=== PATIENT | female | born 2000 | race Two or more races ===

== ENCOUNTER 2024-02-07 16:28 | Emergency (ER) | payer BC, MEDICAID ==
[~2024-02-07] VITALS: Ht 154.9 cm; Wt 61.0 kg
[2024-02-07 18:48] VITALS: BP 126/65; PULSE 60; RESP 16; TEMP 98.3; O2SAT 97
--- NOTE | 2024-02-07 19:37 | DVH ---
EXAM: XY CHEST TWO VIEWS ROUTINE CLINICAL HISTORY: sob TECHNIQUE: Frontal and lateral views of the chest WID: COMPARISON: None FINDINGS: Lines and tubes: None Chest: The heart size and pulmonary vasculature is within normal limits. No pleural effusion, pneumothorax, or consolidation. The osseous structures are grossly intact. IMPRESSION: No acute cardiopulmonary abnormality.
[2024-02-07] MEDS ORDERED: PROM1SOL4 PO (20:01)
[2024-02-07] MEDS ORDERED: METH4PAK PO (20:01)
[2024-02-07] MEDS ORDERED: AZIT-43 PO (20:01)
--- NOTE | 2024-02-07 20:01 | ED.PDOC ---
SOB-HPI HPI Comments This is a 23-year-old female patient presents to the ED chief complaint cough x3 weeks. Reports cough x3 weeks productive with tinge red and mucus. States tried [id number] medications with little relief. Denies difficulty breathing, shortness of breath, chest pain, fever or chills. Chief Complaint: Cough Time Seen by MD: 18:05 Reviewed notes: Nurses Notes, Medications, Allergies Information Source: Patient Mode of Arrival: Ambulatory Past Medical History PAST MEDICAL HISTORY: Denies Surgical History: Denies all surgeries RETAIL SEASONAL SPECIALIST History: No Pertinent RETAIL SEASONAL SPECIALIST History Family History Family History: Reviewed,noncontributory to illness Constitutional: reports: fever; denies: chills, diaphoresis, fatigue, malaise, sweats, weakness, others EENTM: denies: blurred vision, double vision, ear bleeding, ear discharge, ear drainage, ear pain, ear ringing, eye pain, eye redness, hearing loss, mouth pain, mouth swelling, nasal discharge, nose bleeding, nose congestion, nose pain, photophobia, tearing, throat pain, throat swelling, voice changes, others Respiratory: reports: cough; denies: hemoptysis, orthopnea, SOB at rest, shortness of breath, SOB with excertion, stridor, wheezing, others Cardiovascular: denies: chest pain, dizzy spells, diaphoresis, Dyspnea on exertion, edema, irregular heart beat, left arm pain, lightheadedness, palpitations, PND, syncope, others Gastrointestinal: denies: abdomen distended, abdominal pain, blood streaked bowels, constipated, diarrhea, dysphagia, difficulty swallowing, hematemesis, melena, nausea, poor appetite, poor fluid intake, rectal bleeding, rectal pain, vomiting, others Genitourinary: denies: abnormal vagina bleeding, burning, dyspareunia, dysuria, flank pain, frequency, hematuria, incontinence, pain, , vagina discharge, urgency, others Neurological: denies: dizziness, fainting, headache, left sided numbness, left sided weakness, numbness, paresthesia, pre-existing deficit, right sided nu mbness, right sided weakness, seizure, speech problems, tingling, tremors, weakness, others Musculoskeletal: denies: back pain, gout, joint pain, joint swelling, muscle pain, muscle stiffness, neck pain, others Integumetry: denies: bruises, change in color, change in hair/nails, dryness, laceration, lesions, lumps, rash, wounds, others Allergic/Immunocompromised: denies: Difficulty Healing, Frequent Infections, Hives, Itching, others Endocrine: denies: excessive hunger, excessive sweating, excessive thirst, excessive urination, flushing, intolerance to cold, intolerance to heat, unexplained weight gain, unexplained weight loss, others Psychiatric: denies: anxiety, bipolar disorder, depression, hopeless, panic disorder, schizophrenia, sleepless, suicidal, others Physical Exam General Appearance: No Apparent Distress, Normal HEENT: Normal ENT Inspection, Pharynx Normal, TMs Normal Neck: Full Range of Motion, Non-Tender Respiratory: Chest Non-Tender, Inspiration, No Accessory Muscle Use, No Respiratory Distress, Rhonchi Cardiovascular: No Edema, No JVD, No Murmur, No Gallop, Normal Peripheral Pulses, Regular Rate/Rhythm Breast Exam: Deferred Gastrointestinal: No Organomegaly, Non Tender, No Pulsatile Mass, Normal Bowel Sounds, Soft Genitalia: Deferred Pelvic: Deferred Rectal: Deferred Extremities: Normal capillary refill, Normal inspection, Normal range of motion, Non-tender, No pedal edema Musculoskeletal : Apperance: Normal Neurologic: Alert, director of procurement II-XII nml as Tested, No Motor Deficits, Normal Affect, Normal Mood, No Sensory Deficits Cerebellar Function: Normal Reflexes: Normal Skin: Dry, Normal Color, Warm Lymphatic: No Adenopathy Was a procedure done? Was a procedure done?: No Differential Dx Differential Diagnosis: Pneumonia X-Ray, Labs, Meds, VS Vital Signs Date Time Temp Pulse Resp B/P (MAP) Pulse Ox O2 Delivery O2 Flow Rate FiO2 02/07/24 18:48 60 16 97 Room Air 02/07/24 18:48 98.3 60 16 126/65 (85) 97 98.3 02/07/24 16:59 98.3 60 16 126/65 (85) 97 X-Ray, Labs, Meds, VS Comment Chest x-ray shows negative cardio pulmonary findings before director corporate sales read. After review of imaging appears to be perihilar consolidation fluid likely secondary to viral infection viral pneumonia. With symptoms greater than 5 days continues with cough we will trial azithromycin Medrol Dosepak and promethazine for her cough eyes made to rest increase p.o. fluids with electrolytes follow up with her PCP in 2-3 days ER return precautions given patient indicated understanding agrees with discharge plan of care. Time of 1ST Reevaluation: 19:58 Reevaluation 1ST: Improved Patient Education/Counseling: Diagnosis, Treatment, Prognosis, Need For Follow Up Family Education/Counseling: No Family Present Departure 1 Departure Time of Disposition: 19:57 Impression: Primary Impression: Viral pneumonia Disposition: 01 HOME / SELF CARE / HOMELESS Condition: Stable e-Prescriptions Methylprednisolone (Medrol Dosepak) 4 Mg Allen 4 MG PO UD for 6 Days, #21 TAB UAD Prov: SHMUEL BURNS [facility] 02/07/24 Azithromycin (Azithromycin) 250 Mg Tab 250 MG PO DAILY MDD 500 for 5 Days, #6 TAB 0 Refills 2 TABLETS ORALLY ON DAY ONE, THEN 1 TABLET ORALLY DAILY FOR 4 DAYS Prov: SHMUEL BURNS [facility] 02/07/24 Promethazine-Dm (Promethazine Dm 6.25-15 mg/5Ml) 1 Leonora Leonora 5 ML PO QIDP PRN for 4 Days, #80 ML Prov: SHMUEL BURNS [facility] 02/07/24 Discharged With: Self Critical Care Note Critical Care Time?: No Stability Stability form required: No Heart Score Heart Score: Heart Score Response (Comments) Value History N/A 0 EKG N/A 0 Age <45 0 Risk Factors N/A 0 Troponin N/A 0 Total 0 SHMUEL BURNSP Feb 07, 2024 20:01
== END 2024-02-07 20:13 | disposition home or self-care (01) ==
LOC: ER 16:45
DX: J12.9 Viral pneumonia, unspecified (principal); B97.89 Other viral agents as the cause of diseases classified elsewhere
CPT/HCPCS: 71046